=== PATIENT | female | born 1980 | race Caucasian/White ===

== ENCOUNTER 2019-10-24 05:55 | Observation (INO) ==
--- NOTE | 2019-10-11 13:58 | PAT Medication Instructions ---
Medication Instructions Date of Service October 11, 2019 Home Medications multivitamin 1 tab PO DAILY DO NOT take the morning of surgery multivitamin 1 tab PO DAILY Other Notes If you have any questions please call us at [phone] or [phone] or [phone] or [phone]
--- NOTE | 2019-10-12 16:06 | Anesthesiology Consultation ---
Date of Service October 12, 2019 Assessment & Plan (1) Encounter for pre-operative examination: COVID Status: As of 10/11 PAT assessment, patient denies travel to endemic area, known exposure/sick contacts, symptoms, or testing for coronavirus. Patient's mother was + for coronavirus in July, but she lives far away and patient has had no physical contact with her since May. test AM DOS Chart Review Chart Review: Acceptable Risk for Surgery and Patient seen in Pre Admission Testing Teaching & Discussion Instructed NPO after midnight before surgery, except medications with 15 cc of water. Medication instructions provided according to the [facility] guidelines. History Surgery Operation Date: 10/24/19 07:30 Proposed Procedures p Robotic Total Laparoscopic Hysterectomy - Golden Spears MD Height/Weight Height: 5 ft 3.5 in Weight: 63.503 kg Allergies Allergy/AdvReac Type Severity Reaction Status Date / Time No Known Drug Allergies Allergy Verified 10/12/19 14:49 Medications Home Medications Medication Instructions Recorded Confirmed Last Taken multivitamin 1 tab PO DAILY 08/09/19 10/12/19 Unknown doxycycline hyclate 20 mg capsule 20 mg PO DAILY cap 10/12/19 10/12/19 Unknown Past Medical History Medical History Endometriosis Hx of migraines Exercise / Class Metabolic Activity 1 > 8 Run/Swim/Ski/Tennis Past Family History Family History Father Family history of reaction to anesthesia combative Hypertension Aunt Breast cancer, Onset Age: 50 maternal aunt Family/Other Ovarian cancer Hypertension Dyslipidemia Grandfather Hypertension Grandfather (Maternal) Cancer Grandfather (Paternal) Cancer Grandmother Cancer Breast cancer Denies family history of Colorectal cancer Uterine cancer Past Surgical History Surgical History History of anesthesia reaction combative behavior coming out of anesthesia History of anesthesia reaction FATHER-COMBATIVE History of bilateral tubal ligation with bilateral salpingectomy History of surgery removal of calcium deposit from behind ear History of umbilical hernia repair History of wisdom tooth extraction Hx of LASIK Past Anesthesia History No Hx of Anesthesia Complications (other than combative behavior with sedation) and No Family Hx of Anesthesia Complications Combative behavior not an issue with most recent surgeries. History of PONV No Hx of PONV and Hx of Motion Sickness Social History Smoking Status: Never smoker Do You Dip or Chew Tobacco: No Hx Alcohol Use: Yes (occasional) Alcohol type: beer, wine and hard liquor alcohol intake frequency: a few times a month Hx Substance Use: No substance use type: does not use Review of Systems Pt denies any recent chest pain, shortness of breath, palpitations, cough, fever or URI. Physical Exam Vital Signs BP: 132/84 P: 75bpm SPO2: 98% RA T: 98.5 F R: 14 ENMT Mouth: no dental restorations, no chipped teeth and no loose teeth Thyromental Distance: < 3.5 Finger Breadths (3) Mallampati Class: II Neck normal visual inspection; neck extension not limited Respiratory normal respiratory effort Auscultation: lungs clear to auscultation bilaterally Cardiovascular Rate/Rhythm: regular rate and regular rhythm Heart Sounds: no murmur Extremities: no edema Testing Laboratory Results 10/12/19 16:17 Blood Type A Positive 10/12/19 16:17 Antibody Screen POSITIVE A 10/12/19 16:17 *Spoke to Hema @ blood bank. Pt will need to arrive ~1 hour early to cross- match blood due to presence of antibodies. OR notified.
[2019-10-12 16:28] LABS: Basophils # (auto) 0.02 K/uL (0-0.2); Basophils % (auto) 0.4 %; Eosinophils # (auto) 0.09 K/uL (0-0.5); Eosinophils % (auto) 1.6 %; Hematocrit (blood only) 37.1 % (37-47); Hemoglobin 12.4 g/dL (12.0-16.0); Immature Granulocytes # (auto) 0.01 K/uL (0.00-0.02); Immature Granulocytes % (auto) 0.2 %; Lymphocytes # (auto) 2.41 K/uL (1.2-3.4); Lymphocytes % (auto) 42.3 %; Mean Corpuscular Hemoglobin 30.5 pg (25-34); Mean Corpuscular Hgb Conc 33.4 g/dL (32-36); Mean Corpuscular Volume 91.4 fL (80-100); Mean Platelet Volume 9.6 fL (7.4-10.4); Monocytes # (auto) 0.42 K/uL (0.11-0.59); Monocytes % (auto) 7.4 %; Neutrophils # (auto) 2.75 K/uL (1.4-6.5); Neutrophils % (auto) 48.1 %; Platelet Count 247 K/uL (130-400); RDW Coefficient of Variation 12.4 % (11.5-14.5); Red Blood Count 4.06 M/uL (4.2-5.4)
[2019-10-24] MEDS ORDERED: LR 15ML/HR IV SCH (06:00)
[2019-10-24] MEDS ORDERED: CEFAZOLIN 2000MG 2,000 MG/15 ML SYR IV SCH (06:00)
[2019-10-24] MEDS ORDERED: LACTATED RINGER'S 1,000 ML IV SCH (06:00)
[2019-10-24 06:27] LABS: Basophils # (auto) 0.01 K/uL (0-0.2); Basophils % (auto) 0.2 %; Eosinophils # (auto) 0.12 K/uL (0-0.5); Eosinophils % (auto) 2.2 %; Hematocrit (blood only) 38.8 % (37-47); Hemoglobin 13.4 g/dL (12.0-16.0); Immature Granulocytes # (auto) 0.01 K/uL (0.00-0.02); Immature Granulocytes % (auto) 0.2 %; Lymphocytes # (auto) 2.56 K/uL (1.2-3.4); Lymphocytes % (auto) 46.3 %; Mean Corpuscular Hemoglobin 31.8 pg (25-34); Mean Corpuscular Hgb Conc 34.5 g/dL (32-36); Mean Corpuscular Volume 91.9 fL (80-100); Mean Platelet Volume 9.8 fL (7.4-10.4); Monocytes # (auto) 0.37 K/uL (0.11-0.59); Monocytes % (auto) 6.7 %; Neutrophils # (auto) 2.46 K/uL (1.4-6.5); Neutrophils % (auto) 44.4 %; Platelet Count 234 K/uL (130-400); RDW Coefficient of Variation 12.3 % (11.5-14.5); RDW Standard Deviation 41.6 fL (36.4-46.3); Red Blood Count 4.22 M/uL (4.2-5.4); White Blood Count 5.53 K/uL (4.8-10.8)
[2019-10-24] MEDS ORDERED: MIDAZOLAM HCL 1 MG/ML 2ML VIAL ONE (07:09)
[2019-10-24] MEDS ORDERED: fentaNYL citrate 100 MCG/2 ML VIAL ONE ×2 (07:09→08:13)
[2019-10-24] MEDS ORDERED: HYDROmorphone INJ 2 MG/ML SYR/VIAL IV PRN (07:10)
[2019-10-24] MEDS ORDERED: PROMETHAZINE HCL 6.25 MG in SODIUM CHLORIDE 0.9% 50 ML IV PRN (07:10)
[2019-10-24] MEDS ORDERED: ONDANSETRON INJ 2 MG/ML 2 ML VIAL IV PRN ×2 (07:10→09:35)
[2019-10-24] MEDS ORDERED: ATROPINE SULFATE 0.1 MG/ML 10ML SYR IV PRN (07:10)
[2019-10-24] MEDS ORDERED: ePHEDrine sulfate 50 MG/ML AMP IV PRN (07:10)
--- NOTE | 2019-10-24 07:16 | History & Physical Bridge Note ---
Date of Service October 24, 2019 History & Physical Bridge Note I have examined the patient, reviewed the History & Physical and in the interval since the performance of the History & Physical I have noted the following changes of clinical significance: no changes noted
[2019-10-24] MEDS ORDERED: ROCURONIUM BROMIDE 10 MG/ML 5 ML VIAL ONE (07:20)
[2019-10-24] MEDS ORDERED: BUPIVACAINE 0.5 % 5 MG/1 ML MPF 30ML VIAL ONE (07:29)
[2019-10-24] MEDS ORDERED: KETOROLAC 30 MG/ML VIAL ONE (08:26)
[2019-10-24] MEDS ORDERED: LIDOCAINE HCL 2% 2 ML VIAL/AMP(20MG/ML) INFIL ONE (08:26)
[2019-10-24] MEDS ORDERED: ePHEDrine sulfate 50 MG/ML SYR ONE (08:26)
[2019-10-24] MEDS ORDERED: ONDANSETRON INJ 2 MG/ML 2 ML VIAL ONE (08:26)
[2019-10-24] MEDS ORDERED: PHENYLEPHRINE 100MCG/ML 5ML SYR ONE (08:26)
[2019-10-24] MEDS ORDERED: DEXAMETHASONE SOD INJ 4 MG/ML VIAL ONE (08:26)
[2019-10-24] MEDS ORDERED: NEOSTIGMINE METHYLSULFATE 5 MG/5 ML SYR ONE (08:26)
[2019-10-24] MEDS ORDERED: GLYCOPYRROLATE 0.2 MG/ML VIAL ONE (08:26)
[2019-10-24] MEDS ORDERED: PROPOFOL IV EMULSION 10 MG/ML 20 ML VIAL IV ONE (08:26)
[2019-10-24] MEDS ORDERED: LARYING-O-JET KIT (LTA) ONE (08:26)
[2019-10-24] MEDS ORDERED: TISSEEL FIBRIN SEALANT 4ML TOP ONE (08:33)
--- NOTE | 2019-10-24 09:34 | Post Operative Brief Note ---
PG Immediate Post Op with CF Date of Surgery October 24, 2019 Pre & Post Diagnosis Operation Date: 10/24/19 07:30 Pre-Op Diagnosis: Dysfunctional Uterine Bleeding, Pelvic Pain, Endom Post-Op Diagnosis: Dysfunctional Uterine Bleeding, Pelvic Pain, Endom I identified the patient and participated in the time-out.: Yes Procedure Operation Date: 10/24/19 07:30 Actual Procedures p Robotic Total Laparoscopic Hysterectomy, cystoscopy(Bilateral) - Golden Spears MD Surgeon Golden Spears MD Rack Maker NOne Estimated Blood Loss 15 Findings Consistent with Post-Op Diagnosis Specimens Specimen Description: A. Cervix, uterus Drains Baeza Catheter
[2019-10-24] MEDS ORDERED: ACETAMINOPHEN 325 MG TAB PO PRN (09:35)
[2019-10-24] MEDS ORDERED: IBUPROFEN 600 MG TAB PO PRN (09:35)
[2019-10-24] MEDS ORDERED: KETOROLAC 30 MG/ML VIAL IV PRN (09:35)
[2019-10-24] MEDS ORDERED: OXYCODONE/ACETAMINOPHEN 5mg/325mg TAB PO PRN (09:35)
[2019-10-24] MEDS ORDERED: SIMETHICONE 80 MG CHEW PO PRN (09:35)
[2019-10-24] MEDS: fentaNYL citrate 100 MCG/2 ML VIAL IV PRN ×4 (09:52→10:07)
--- NOTE | 2019-10-24 10:48 | Anesthesiology Progress Note ---
Date of Service October 24, 2019 Anesthesia Post Procedure Vital Signs Vital Signs: Temp Pulse Pulse Resp BP Pulse Ox 10/24/19 10:35 59 L 13 108/66 99 10/24/19 10:25 36.8 C 69 15 105/44 L 100 10/24/19 10:15 65 16 116/61 100 10/24/19 10:05 59 L 17 107/84 100 10/24/19 09:55 56 L 20 119/60 100 10/24/19 09:49 36.3 C L 79 16 108/90 100 10/24/19 06:33 36.7 C 70 16 142/81 H 100 Pain Intensity Abdomen: Pain Intensity: 2 Transfer of Care Handoff Completed per policy Notes Mental Status: alert / awake / arousable Patient Amnestic to Procedure: Yes Nausea / Vomiting: adequately controlled Pain: adequately controlled Airway Patency, RR, SpO2: stable & adequate BP & HR: stable & adequate Hydration State: stable & adequate Anesthetic Complications: no major complications apparent
--- NOTE | 2019-10-24 13:50 | Operative Report (OR) ---
DATE OF OPERATION: 10/24/2019 PROCEDURE: Robotic-assisted total laparoscopic hysterectomy and cystoscopy. SURGEON: Golden Spears MD. PREOPERATIVE DIAGNOSES: 1. Chronic pelvic pain. 2. Abnormal uterine bleeding. 3. Endometriosis. 4. Suspected adenomyosis. POSTOPERATIVE DIAGNOSES: 1. Chronic pelvic pain. 2. Abnormal uterine bleeding. 3. Endometriosis. 4. Suspected adenomyosis. 5. Status post procedure. ESTIMATED BLOOD LOSS: 15 mL. DRAINS: Baeza catheter. FLUIDS: Continuous lactated Ringer. URINE OUTPUT: Via Baeza catheter. COMPLICATIONS: None. FINDINGS: There was noted to be endometriosis throughout the pelvis as previously documented. The bilateral ovaries were normal-appearing. The uterus had the irregular contours consistent with adenomyosis. At the completion of the case, there was noted to be intact bladder and bilateral ureteral efflux. There was noted to be minimal adhesive disease during the procedure. DESCRIPTION OF PROCEDURE: The patient was taken to the operating room after consents were ensured. Upon presentation, she was properly identified. General endotracheal anesthesia was obtained without difficulty. The patient was then prepped and draped in normal sterile fashion. Preprocedural timeout was performed. A VCare uterine manipulator and Baeza catheter were both placed without issue. The laparoscopic portion of the case was then initiated. Due to the patient having 2-3 prior incisions at the umbilicus, we opted to enter in the left upper quadrant. An 8 mm incision was made in the left upper quadrant and a Veress needle was inserted through the incision and the abdomen insufflated to 15 mmHg. There was noted to be symmetric abdominal rise, tympany over the liver and opening pressure of approximately 4 mmHg, all consistent with appropriate intra-abdominal insufflation. An 8 mm trocar was then introduced through the incision and immediate inspection noted atraumatic entry. The abdomen and pelvis were then inspected and noted to be free of adhesions. An incision was made on the superior aspect of the umbilicus to support a 12 mm incision. A 12-mm trocar was then inserted through the incision under direct visualization, atraumatic entry noted. Incisions were made in the left and right lower quadrants to accommodate 8 mm trocars, which were both introduced in an atraumatic fashion with direct visualization. The robot was then docked. The left round ligament was then identified, serially cauterized and dissected. The uteroovarian vessels and ligament were identified, serially cauterized and dissected back to the level of the dissection from the round ligament. A bladder flap was then started on the left side, continuing around towards the midline starting from the left side. The left broad ligament was then dissected down to near the level of the uterine vessels. The right portion of the uterus was then visualized and the right round ligament serially cauterized and dissected. The right uteroovarian ligament vessels were identified, serially cauterized and dissected. This was continued back to the level of the dissected round ligament. The bladder flap was then started on the right side and continued to join the bladder flap initiated on the left. The bladder was then dissected off the lower uterine segment and cervix until the uterine manipulator cup showed a well-demarcated vaginal cervical junction. The broad ligament was then dissected down to the level of the right uterine vessels. The right uterine vessels were skeletonized and serially cauterized and dissected first on the right and then on the left. The colpotomy was then started anteriorly, continued circumferentially around the cervix, freeing the cervix from the vagina. The uterus was then brought through the vaginal cuff without difficulty. The vaginal cuff was then closed with V-Loc suture in continuous running stitch. The abdomen was then suction irrigated and all pedicles and vaginal cuff were noted to be hemostatic. 4 mL of Tisseel was distributed through all raw edges and pedicles. The decision was made to end the robotic portion of the case, and the robot was undocked and the abdomen desufflated with trocars left in place. A cystoscopy was then performed and there was noted to be an intact bladder and bilateral ureteral efflux. The abdomen was fully desufflated and the trocars were removed. The fascia at the umbilical incision was reapproximated with 0 Vicryl in single interrupted stitch. The skin was reapproximated at all incisions with 4-0 Vicryl in single interrupted stitch in a subcuticular fashion. 10 mL of Marcaine was distributed throughout the incisions and Dermabond was placed on top. The patient was then woken from anesthesia and taken to recovery room in stable condition. I attest to the content of the Intraoperative Record and any orders documented therein. Any exception s are noted below.
[2019-10-24] MEDS ORDERED: DOCUSATE SODIUM 100 MG CAP PO SCH (21:00)
--- NOTE | 2019-11-03 12:51 | Discharge Summary (DS) ---
HOSPITAL COURSE: The patient was admitted for scheduled robotic-assisted total laparoscopic hysterectomy with cystoscopy. Procedure was performed without issue or complication. The patient remained in house for recovery for approximately 6-8 hours following the procedure and was discharged home in stable condition after meeting all criteria. The patient was given both written and verbal discharge instructions prior to leaving. The patient was scheduled for followup visit in 2 weeks or as needed.
== END 2019-10-24 15:40 | disposition home or self-care (01) ==
LOC: 4N 05:55 → ASU 05:55